=== PATIENT | female | born 1980 | race Caucasian/White ===

== ENCOUNTER → 2016-11-24 | Outpatient (CLI) | payer OTHER ==
[~2016-11-24] MED LIST: ASPI-860 PO; DILT120C47 PO; FERR325T36 PO; FLUT9.9S NS; NAPR250T34 PO; OXYC1TAB87 PO; PREN-148 PO
--- NOTE | 2016-11-24 10:47 | Diagnostic Imaging Report ---
US OB PREG, LATE (14-40 WKS) Technique: Multi-projectional grayscale and color Doppler imaging of the gravid uterus was performed. Indication: Assess size and dates. Comparison: Ultrasound of 09/20/2016. Findings: There is a single live intrauterine with a heart rate of 146 beats per minute. The fetus is cephalic in presentation. The placenta is posteriorly located. The amount of amniotic fluid appears visually appropriate. The cervix is closed. Estimated gestational age by ultrasound was performed by evaluating the biparietal diameter, head circumference, abdominal circumference and femoral length. Based on these measurements, the average gestational age by ultrasound is 30 weeks and 0 days. A limited anatomy survey was performed. This again demonstrates mild symmetric prominence of the renal pelves, which is unchanged. Remainder of the anatomy survey is limited due to gestational age and position. Please see prior anatomy survey performed 09/20/2016 for better evaluation of the anatomy. Impression: 1. Single live with heart rate of 146 beats per minute. 2. Estimated gestational age by ultrasound is 30 weeks and 0 days. This is concordant with the gestational age by LMP, which is 29 weeks and 4 days. Dictated by: Dictated on workstation # [id number]
== END ==
LOC: RAD 08:22
PROVIDERS: ATTEND Family Medicine
DX: O26.843 Uterine size-date discrepancy, third trimester (principal); Z3A.30 30 weeks gestation of pregnancy
CPT/HCPCS: 76805

== ENCOUNTER 2016-12-25 06:44 | Outpatient (CLI) | payer OTHER ==
[~2016-12-25] VITALS: Ht 162.6 cm; Wt 109.0 kg
[2016-12-25 07:05] VITALS: BP 158/87
[2016-12-25 07:30] VITALS: BP 144/84
[2016-12-25 07:40] VITALS: BP 136/79
[2016-12-25 08:00] VITALS: BP 129/86
[2016-12-25 08:10] VITALS: BP 118/75
[2016-12-25 08:20] LABS: BILIRUBIN,URINE Negative (Negative); CLARITY,URINE Clear; COLOR,URINE Yellow; GLUCOSE, URINE (UA) Negative (Negative); LEUKOCYTE ESTERASE, URINE Negative (Negative); UROBILINOGEN,URINE 0.2 mg/dL (0.2-1.0)
[2016-12-25 08:21] LABS: URINE CENTRIFUGED VOLUME 12 mL
[2016-12-25 08:29] LABS: RBC,URINE 0-2 /HPF
[2016-12-25 08:40] VITALS: BP 122/82
--- NOTE | 2016-12-25 10:29 | NUR ---
0700 pt arrived to room 226 via wheelchair accompanied by ER nurse, Haily. pt complains of elevated BP with pre eclampsia hx in last ,back, stomach and vaginal pain that started at 0200 today. She was at work this morning and had a co-worker take her BP with the following readings: 124/115, 104/83, 108/96. placed pt on monitor and assessed pt. see documentation. 0900 pt discharged in good condition. Discharge teaching/instructions reviewed with pt, who denies questions. She left the OB unit ambulatory.
== END 2016-12-25 09:00 | disposition home or self-care (01) ==
LOC: EDUNIT# 06:44 → ED 06:46 → EDSTATUS 06:57 → OBGOP 06:58 → OB 06:59 → OBGOP 09:00
PROVIDERS: ATTEND Family Medicine
DX: O26.893 Other specified pregnancy related conditions, third trimester (principal); M54.9 Dorsalgia, unspecified; R10.2 Pelvic and perineal pain; Z3A.34 34 weeks gestation of pregnancy
CPT/HCPCS: 81003; 81015; 99202

== ENCOUNTER → 2017-01-16 | Outpatient (CLI) | payer OTHER | LOC: RAD 12:57 | PROVIDERS: ATTEND Family Medicine | DX: N13.39 Other hydronephrosis (principal) | CPT/HCPCS: 76815 ==

== ENCOUNTER 2017-01-30 16:02 | Inpatient (IN) | payer OTHER ==
[~2017-01-30] VITALS: Ht 162.6 cm; Wt 113.6 kg
[2017-01-30] VITALS (14 sets, daily range): BP systolic 102–139; BP diastolic 55–93
[~2017-01-30 16:02] MED LIST changes: -NAPR250T34 PO; -OXYC1TAB87 PO
--- OUTSIDE RECORDS SUMMARY | 2017-01-30 16:06 | XMS REPORT | Continuity of Care Document ---
Author Author [facility] Address Unknown Phone Unavailable Care Team Providers Care Press Brake Operator Name Role Phone CHERYL MITCHELL MD PCP [phone] Insurance Providers Payer Name Policy Number Subscriber Name Relationship [employer] [id number] Jennifer Moya 18 Self / Same As Patient Problems Active Problems Medical Problem Onset Date Status 34 weeks gestation of Unknown Acute Back pain Unknown Acute Vaginal pain Unknown Acute Medications Current Home Medications Medication Dose Units Route Directions Days/Qty Instructions Start Date Fluticasone Propionate 9.9 Ml 9.9 Ml Nasal As Needed for Allergies 12/25/16 Vit #76/Iron,Carb/Fa 1 Each 1 Each ORAL Daily 12/25/16 Ferrous Sulfate 325 Mg 325 Mg ORAL Daily 12/25/16 Aspirin 81 Mg 81 Mg ORAL Daily 12/25/16 Diltiazem Hcl 120 Mg 120 Mg ORAL Daily 12/25/16 Social History Query Response Start Date Stop Date Smoking Status Never smoker Hospital Discharge Instructions No hospital discharge instructions. Plan of Care Discharge Date 12/25/16 9:00am Prescriptions See Medication Section Functional Status No functional status results. Allergies, Adverse Reactions, Alerts No allergy information available. Immunizations No immunization records. Vital Signs Acute Vital Signs Vital Response Date/Time Temperature (Fahrenheit) 98.2 12/25/2016 8:00am Pulse 82 bpm 12/25/2016 8:40am Respirations 18 12/25/2016 8:40am Height 5 ft 4 in Weight 240 lb Body Mass Index 41.0 kg/m^2 Results Laboratory Results Test Name Result Units Flags Reference Collection Date/Time Result Date/ Time Comments Volume Urine Centrifuged 12 mL 12/25/2016 8:00am 12/25/2016 8:29am Urine Collection Type CLEAN CATCH 12/25/2016 8:00am 12/25/2016 8: 29am Urine Color Yellow 12/25/2016 8:00am 12/25/2016 8:20am Urine Clarity Clear 12/25/2016 8:00am 12/25/2016 8:20am Urine pH 7.0 5.0 - 8.0 12/25/2016 8:00am 12/25/2016 8:20am Urine Specific [place] 1.010 1.005-1.030 12/25/2016 8:00am 2016 8:20am Urine Protein Negative 12/25/2016 8:00am 12/25/2016 8:20am Urine Glucose (UA) Negative Negative 12/25/2016 8:00am 12/25/2016 8: 20am Urine Blood Trace-intact H Negative 12/25/2016 8:00am 12/25/2016 8: 20am Urine Ketones Negative Negative 12/25/2016 8:00am 12/25/2016 8:20am Urine Nitrite Negative Negative 12/25/2016 8:00am 12/25/2016 8:20am Urine Bilirubin Negative Negative 12/25/2016 8:00am 12/25/2016 8: 20am Urine Urobilinogen 0.2 mg/dL 0.2-1.0 12/25/2016 8:00am 12/25/2016 8: 20am Urine Leukocyte Esterase Negative Negative 12/25/2016 8:00am 2016 8:20am Urine Microscopic RBC 0-2 /HPF 12/25/2016 8:00am 12/25/2016 8:29am Urine Microscopic WBC None Seen /HPF 12/25/2016 8:00am 12/25/2016 8: 29am Urine Bacteria None Seen /HPF Negative 12/25/2016 8:00am 12/25/2016 8: 29am Urine Squamous Epithelial Cells 5-10 /LPF 12/25/2016 8:00am 2016 8:29am Procedures No known history of procedures. Encounters Encounter Location Arrival/Admit Date Discharge/Depart Date Attending Provider Departed Clinic [facility] 12/25/16 6:58am 12/25/16 9:00am KHADIJAH ARECHIGA MD Recent Diagnosis 34 weeks gestation of Back pain Vaginal pain
[2017-01-30] MEDS ORDERED: MISOPROSTOL 25 MCG (CYTOTEC) TABLET PV SCH (16:45)
[2017-01-30] MEDS ORDERED: CALCIUM CARBONATE CHEWABLE 300 MG (TUMS) TABLET PO PRN (16:45)
[2017-01-30] MEDS ORDERED: NS FLUSH 10 ML PRN IV (17:05)
[2017-01-30] MEDS ORDERED: NS FLUSH 3 ML PRN IV (17:05)
[2017-01-30 17:19] LABS: MEAN CORPUSCULAR HEMOGLOBIN 29.5 PG (26.0-34.0); MEAN CORPUSCULAR HGB CONC 33.5 g/dL (31.0-37.0); MEAN PLATELET VOLUME 10.5 FL (6.0-9.5); WHITE BLOOD COUNT 10.44 10^3uL (4.0-11.0)
[2017-01-30 17:32] LABS: ALBUMIN 3.3 g/dL (3.4-5.0); ANION GAP 12.4 MEQ/L (3-15); CALCULATED IONIZED CALCIUM 4.1 mg/dL (3.8-4.6); TOTAL PROTEIN 6.6 g/dL (6.4-8.5)
--- NOTE | 2017-01-30 17:48 | History and Physical (E) ---
History & Physical (OB) Subjective: CC: Term IUP with increasing blood pressure HPI: 36 y/o female at 39 1/7 weeks EGA who presented to the office for routine OB visit today with BP 160/90 that improved to 134/90 with rest. Patient with chronic hypertension and a history of preeclampsia with prior . On questioning she reports 3 days of headaches, no scotomata, epigastric abdominal discomfort, increasing swelling in hands. Decision for induction made. Patient has requested BTL for contraception. PNC: Advanced maternal age (no aneuploidy screening elected), anemia (taking supplemental iron). Fetus noted to have prominent renal pelves on ultrasound. OB Hx: 4 vaginal deliveries. Prior pregnancies with gestational diabetes and preeclampsia PMHx: Asthma, Chronic hypertension. 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) PSHx: Left shoulder surgery Allergies: Coded Allergies: No Known Drug Allergies (Unverified , 01/30/17) Home Medications: Reported Medications Diltiazem HCl (Dilt-XR)120 Mg Cap.er.upz036 Mg PO DAILY 12/25/16 Aspirin 81 Mg Tablet.dr81 Mg PO DAILY 12/25/16 Ferrous Sulfate (Iron)325 Mg Krmxqi483 Mg PO DAILY 12/25/16 Vit #76/Iron,Carb/Fa (Pnv 29-1 Tablet)1 Each Tablet1 Each PO DAILY 12/25/16 Fluticasone Propionate (Flonase Allergy Relief)9.9 Ml [place].susp9.9 Ml NS NEEDED Allergies 12/25/16 Objective: Laboratory Results Past 24 Hrs 01/30/17 17:10: Alanine Aminotransferase (ALT/SGPT) [Pending], Albumin [Pending], Albumin/ Globulin Ratio [Pending], Alkaline Phosphatase [Pending], Anion Gap [Pending], Aspartate Amino Transf (AST/SGOT) [Pending], BUN/Creatinine Ratio [Pending], Blood Urea Nitrogen [Pending], Calcium Level [Pending], Calcium/Ionized Calcium Ratio [Pending], Calculated Osmolality [Pending], Carbon Dioxide Level [Pending] , Chloride Level [Pending], Creatinine [Pending], Estimat Glomerular Filtration Rate [Pending], Estimated GFR (Non- [Pending], Glucose Level [ Pending], Hematocrit 39.10, Hemoglobin 13.1, Mean Corpuscular Hemoglobin 29.5, Mean Corpuscular Hemoglobin Concent 33.5, Mean Corpuscular Volume 88, Mean Platelet Volume 10.5, Platelet Count 217, Potassium Level [Pending], Red Blood Count 4.44, Red Cell Distribution Width 13.1, Sodium Level [Pending], Total Bilirubin [Pending], Total Protein [Pending], Uric Acid [Pending], White Blood Count 10.44 BP 137/93 General: Alert and oriented, NAD Chest: CTA Abdomen: Gravid Cardiovasular: RRR, No murmur Extremities: No edema FHT's: 140's. Moderate LTV. +accels. No decels. Cat 1 Cx: 2/75/-3 Vtx (confirmed by US) [place]: Rare ctx's Screenings: Blood type: O Positive, Rubella Immune, RPR non-reactive, HBV , HIV Negative , GBS Negative. Problems/Plans: (1) Term (2) Elevated blood pressure affecting , antepartum Assessment & Plan: Initiate term cytotec induction. No active preeclampsia. No reason to wait for later induction. Patient in agreement. Checking HELLP labs. No proteinuria on urine dip in office this afternoon. (3) History of pre-eclampsia in prior , currently in third trimester Assessment & Plan: See above. (4) Anemia affecting Assessment & Plan: Taking supplemental iron. Continuance after delivery determined by hemoglobin. (5) Chronic hypertension in Assessment & Plan: Monitor blood pressure closely. Notify me if >160/ 90.Currently taking a daily oral CCB. (6) Unwanted fertility Assessment & Plan: Patient has requested PP BTL. Dr Lundberg has been consulted for that. (7) renal anomaly Assessment & Plan: Planning renal ultrasound on after delivery. Prominence of renal pelves bilaterally--mild. Additional Copies to: End of Report . CHERYL MITCHELL MD Jan 30, 2017 17:48
--- NOTE | 2017-01-30 17:53 | Progress Note (E) ---
Progress Note Labs WNL but uric acid 5 (upper end of normal). CHERYL MITCHELL MD Jan 30, 2017 17:53
[2017-01-30] MEDS ORDERED: ACETAMINOPHEN 500 MG TAB (TYLENOL) PO PRN (20:25)
[2017-01-30] MEDS ORDERED: OXYTOCIN INJ 20 UNIT in NS 1000ml 1,000 ML SCH (21:30)
[2017-01-30] MEDS ORDERED: DILTIAZEM 60 MG (CARDIZEM) TAB PO SCH (21:45)
[2017-01-30] MEDS ORDERED: OXYTOCIN INJ 20 UNIT in NS 1000ml 1,000 ML IV SCH (22:03)
[2017-01-30] MEDS ORDERED: ROPIVACAINE 1% 10 MG/ML (NAROPIN) 20 ML AMPUL ONE (22:13)
[2017-01-31] VITALS (27 sets, daily range): BP systolic 111–166; BP diastolic 64–91
[2017-01-31 00:36] LABS: BILIRUBIN,URINE Negative (Negative); CLARITY,URINE Clear; COLOR,URINE Yellow; GLUCOSE, URINE (UA) Negative (Negative); LEUKOCYTE ESTERASE ,URINE Negative (Negative); UROBILINOGEN,URINE 0.2 mg/dL (0.2-1.0)
[2017-01-31 01:08] LABS: RBC,URINE None Seen /HPF; URINE CENTRIFUGED VOLUME 12 mL
[2017-01-31] MEDS ORDERED: DILTIAZEM 60 MG (CARDIZEM) TAB PO SCH (09:00)
--- NOTE | 2017-01-31 09:02 | Progress Note (E) ---
Progress Note S: Feeling contractions occasionally O: Cx 4/75/-3 Vtx. Amniotomy yields clear fluid FHT's 140's moderate LTV, + accels until 08:00. Amniotomy at 8:04, clear fluid. Then occasional variable decels with contractions. Ultrasound at 8:23 shows OA presentation. FHT's thereafter show repeated late decels to 90's with contractions with rapid recovery. Repeat Cx exam shows 4/80/-2, no cord. O2 placed, turned to left side. IV fluid bolus started FHT's with minimal variability, gradually improving, now with early decels at 8:45. Ctx's Q 2-4 min A/P: Minimal progress overnight despite adequate contractions. Now with category 2 strip after amniotomy but no cord prolapse. Will alert team. CHERYL MITCHELL MD Jan 31, 2017 09:01
[2017-01-31] MEDS ORDERED: ROPIVACAINE 1% 10 MG/ML (NAROPIN) 20 ML AMPUL ONE ×2 (09:04→14:52)
[2017-01-31] MEDS: OXYTOCIN INJ 20 UNIT in NS 1000ml 1,000 ML IV PRN ×2 (10:07→13:23)
--- NOTE | 2017-01-31 10:33 | Vaginal Delivery Summary (E) ---
Vaginal Delivery Summary At 16:02 on 01/30/17 this 36 year old G 5 now P4 presented to the Labor and Delivery Unit at 39&2 weeks gestation. The patient presented for care at 5 weeks and ultrasound at 8 confirmed dates. This complications: advanced maternal age, chronic hypertension, abnl renal findings on ultrasound Maternal labs: Blood type: O Positive, Hgb , Rubella Immune, RPR non-reactive, HBV Negative, HIV Negative , GBS Negative. Tdap booster received on 11/15/16. Flu booster received on 08/24/16. She presented for term with increasing blood pressure . At presentation, she was 2cm dilated. On 01/31/17 at 8:30 approx, AROM was performed by me with clear fluid returned. Epidural was placed at 22:28 by asmita toth crna, with good pain relief. Cytotec dose x 1 followed by pitocin augmentation. Progressed only to 4 cm by 8 :00am. AROM performed. decels improved with fluids, oxygen and repositioning and decreasing pitocin. Progressed rapidly to complete dilation and pushed very effectively to deliver a vigorous male from OA position with no nuchal cord. Body delivered without trauma. Suctioned after delivery and stimulated and placed on maternal abdomen. No additional resuscitation was required. Placenta delivered intact with 3 vessel cord. Fundus was firm and hemostatic. First degree posterior laceration required 2 sutures to become hemostatic using 3.0 vicryl. Hemostasis noted. Fundus firm. EBL 250 cc. No complications. Both patient and recovering in stable condition. CHERYL MITCHELL MD Jan 31, 2017 10:33
[2017-01-31] MEDS ORDERED: oxyCODONE/ACETAMINOPHEN 5MG-325 MG (PERCOCET) TABLET PO PRN (10:35)
[2017-01-31] MEDS ORDERED: NAPROXEN 250 MG (NAPROSYN) TABLET PO PRN (10:35)
[2017-01-31] MEDS ORDERED: LANOLIN OINTMENT 28 GM TUBE TOP PRN (10:35)
--- NOTE | 2017-01-31 11:50 | HISTORY AND PHYSICAL ---
HISTORY CHIEF COMPLAINT: Multigravida requesting sterilization with medical indications HISTORY OF PRESENT ILLNESS: The patient is a 36-year-old female who just delivered vaginally under the care of Dr. Og. This is her fourth vaginal delivery. Her health, however, is complicated by chronic hypertension. It is complicated also by gestational diabetes and preeclampsia now with the last 2 pregnancies. Because of her advancing maternal age, her preexisting hypertension and then her preeclampsia, it is felt indicated to proceed with permanent sterilization per patient's health. Her is present during the consultation and both admitted that this was actually somewhat of a surprise to them and was somewhat risky during her advancing age and medical problems. I spoke with both regarding that this is a permanent and irreversible means of sterilization. There is a potential failure rate, which may result in even tubal . Also discussed the risk of mini-laparotomy surgery with the risk of potential bleeding or infection. She wishes to proceed with the procedure. PAST MEDICAL HISTORY: As mentioned the patient has chronic central hypertension, and has had complications of gestational diabetes and preeclampsia. PAST SURGICAL HISTORY: She has had no previous abdominal surgeries. ALLERGIES: She has no drug allergies. PHYSICAL EXAM Examination currently reveals her vitals signs to all be stable with no hypertension, no tachycardia. Heart is regular. Lungs are clear. Heart regular rate and rhythm without murmur. Abdomen reveals the uterine fundus near the umbilicus. She appears to be medically stable. ASSESSMENT: Desire for sterilization with medical indications. PLAN: Plan to proceed with mini-laparotomy tubal under proposed epidural anesthesia if epidural was still functional.
[2017-01-31] MEDS ORDERED: BUPIVACAINE/EPINEPHRINE 0.5%-1:200,000 (MARCAINE) 30 ML VIAL INJ ONE (13:54)
[2017-01-31 14:28] LABS: BASOPHILS % (AUTO) 0 % (0-2); EOSINOPHILS # (AUTO) 0.1 10^3uL; EOSINOPHILS % (AUTO) 1 % (0-4); LYMPHOCYTES # (AUTO) 2.3 X10^3; MEAN CORPUSCULAR HEMOGLOBIN 29.6 PG (26.0-34.0); MEAN CORPUSCULAR VOLUME 87 FL (80-100); MEAN PLATELET VOLUME 10.7 FL (6.0-9.5); MONOCYTES # (AUTO) 0.9 X10^3; MONOCYTES % (AUTO) 7 % (3-11); NEUTROPHILS # (AUTO) 10.1 X10^3; NEUTROPHILS % (AUTO) 76 % (51-67); PLATELET COUNT 180 10^3uL (150-450); WHITE BLOOD COUNT 13.42 10^3uL (4.0-11.0)
[2017-01-31 14:35] LABS: ANION GAP 10.5 MEQ/L (3-15)
[2017-01-31] MEDS ORDERED: morphine PF 0.5 MG/ML (DURAMORPH) 10 ML VIAL IV ONE (14:52)
--- NOTE | 2017-01-31 14:55 | NUR ---
Pt take to OB OR via chart for tubal ligation. Infant remains in post room with father.
[2017-01-31] MEDS ORDERED: LIDOCAINE 2% (XYLOCAINE) 20 ML VIAL INJ ONE (15:26)
[2017-01-31] MEDS ORDERED: MIDAZOLAM 2 MG/2 ML (VERSED) VIAL ONE (15:26)
[2017-01-31] MEDS ORDERED: EPINEPHRINE INJ ONE (15:26)
[2017-01-31] MEDS ORDERED: LIDOCAINE INJ ONE (15:26)
[2017-01-31] MEDS ORDERED: SUCCINYLCHOLINE 20 MG/ML 10 ML VIAL ONE (15:29)
[2017-01-31] MEDS ORDERED: PROPOFOL 20 ML IV ONE (15:29)
--- NOTE | 2017-01-31 16:30 | NUR ---
Pt back from surgery. Report received from surgical nurse.
--- NOTE | 2017-01-31 17:38 | Progress Note (E) ---
Progress Note Had to use general anesthesia with BTL. Now throat is sore. Will order Chlorseptic. Waiting for sensation to return to legs. Nursing well. CHERYL MITCHELL MD Jan 31, 2017 17:38
[2017-01-31] MEDS ORDERED: PHENOL THROAT SPRAY (CHLORASEPTIC) 177 ML BTL MM ONE (17:40)
[2017-01-31] MEDS: DILTIAZEM CD 120 MG (CARDIZEM CD) CAP PO SCH ×2 (21:00→21:47)
[2017-01-31] MEDS ORDERED: DILTIAZEM CD 120 MG (CARDIZEM CD) CAP PO SCH (21:00)
[2017-01-31] MEDS ORDERED: DOCUSATE SODIUM 100 MG (COLACE) CAP PO SCH (21:00)
--- NOTE | 2017-01-31 21:30 | NUR ---
Patient reports she took her own BP medication. Ordered Cardizem CD not given for this reason.
[2017-02-01 08:35] LABS: MEAN CORPUSCULAR HEMOGLOBIN 29.6 PG (26.0-34.0); MEAN CORPUSCULAR HGB CONC 33.9 g/dL (31.0-37.0); MEAN PLATELET VOLUME 10.6 FL (6.0-9.5); WHITE BLOOD COUNT 11.47 10^3uL (4.0-11.0)
[2017-02-01 08:45] VITALS: BP 152/94
--- NOTE | 2017-02-01 08:55 | Progress Note (E) ---
Progress Note S: Pain controlled. Bleeding improving. Eating/ambulating/nursing well. O: VS BP 152/94 P75 o2 95% T 98.2 R18 Incision dry, no erythema Fundus below umbilicus Ext: No edema/ - Jillian's Lab: Laboratory Results Past 24 Hrs 01/31/17 14:20: Anion Gap 10.5, BUN/Creatinine Ratio 12, Basophils # (Auto) 0.0, Basophils (%) ( Auto) 0, Blood Urea Nitrogen 7, Calcium Level 8.1, Carbon Dioxide Level 19, Chloride Level 112, Creatinine 0.59, Eosinophils # (Auto) 0.1, Eosinophils (%) ( Auto) 1, Estimat Glomerular Filtration Rate 139.5, Estimated GFR (Non- 115.3, Glucose Level 74, Hematocrit 35.30, Hemoglobin 12.0, Lymphocytes # (Auto) 2.3, Lymphocytes (%) (Auto) 17, Mean Corpuscular Hemoglobin 29.6, Mean Corpuscular Hemoglobin Concent 34.0, Mean Corpuscular Volume 87, Mean Platelet Volume 10.7, Monocytes # (Auto) 0.9, Monocytes (%) ( Auto) 7, Neutrophils # (Auto) 10.1, Neutrophils (%) (Auto) 76, Platelet Count 180, Potassium Level 3.7, Red Blood Count 4.05, Red Cell Distribution Width 13.1 , Sodium Level 138, White Blood Count 13.42 02/01/17 08:07: Hematocrit 33.90, Hemoglobin 11.5, Mean Corpuscular Hemoglobin 29.6, Mean Corpuscular Hemoglobin Concent 33.9, Mean Corpuscular Volume 87, Mean Platelet Volume 10.6, Platelet Count 195, Red Blood Count 3.88, Red Cell Distribution Width 13.0, White Blood Count 11.47 A/P 1. PPD #1. Doing well. Wanting to go home. See discharge orders. 2. Chronic hypertension: A bit high. Continue same meds. Will adjust at PP visit if needed 3. Gestational anemia: Continue FeSO4. 4. S/P BTL. Doing well. CHERYL MITCHELL MD Feb 01, 2017 08:55
[2017-02-01] MEDS ORDERED: OXYC1TAB87 PO (08:57)
[2017-02-01] MEDS ORDERED: NAPR250T34 PO (08:57)
--- NOTE | 2017-02-01 12:15 | OPERATIVE REPORT ---
DATE OF OPERATION: 01/31/2017 PRE-OPERATIVE DIAGNOSIS: Desire for permanent sterilization. POST-OPERATIVE DIAGNOSIS: Desire for permanent sterilization. OPERATIVE PROCEDURE: Minilaparotomy bilateral partial salpingectomy (tubal). SURGEON: Bharat Lundberg M.D. ANESTHESIA: General. DESCRIPTION OF PROCEDURE: Lian is a 36-year-old multigravida just delivered her fourth baby earlier in the day. She had made a decision for permanent irreversible sterilization. She had medical complications that supported this. After informed consent, she was taken to the OB OR NPO status. She was placed in the usual manner where a periumbilical scrub, preps, and drapes were applied. A small curve linear incision was created after general anesthesia was induced in that her epidural was no longer functional. The incision was approximately 1-inch in length. This was carried down to the anterior midline where the fascia was then tented and entered vertically. When the peritoneum was inspected it was then entered bluntly, grasped, and opened with the hemostats. At this point, the fascial incision was then opened up large enough to accept [employer] retractors. With the deep end of the [employer] retractors placed they were manipulated to first identify the left fallopian tube. It was grasped with a Angela clamp and then delivered through the wound. With a second clamp, the fallopian tube was then teased out of the wound until the fimbriae was identified. At this point, a midportion of the tube was then grasped with a [place] clamp to create a knuckled segment which was then ligated with plain 0-Gut. The second independent ligature of plain 0-Gut was placed also. At this point, the ligature segment was excised and sent for pathologic identification. The ligated ends were also cauterized. This was allowed to drop back into the abdominal wound where upon the same procedure was used on the right fallopian tube with the same results. At this point, a small peritoneal defect was closed with a figure of eight 2-0 Vicryl. The fascial defects were closed at the midline with 3 ligatures of running 0-Vicryl and the skin edges were closed with subcuticular 4-0 Vicryl. The skin edges were also supported with Mastisol and Steri-Strips. There are no complications during the case. The patient was taken back to her postop room in good condition.
--- NOTE | 2017-02-01 13:30 | NUR ---
Education and discharge instruction review with patient. Patient denies any questions or concerns. Discharge papers signed.
--- NOTE | 2017-02-01 14:30 | NUR ---
Infant bracelet verified with mother's. Infant secured properly into carrier. Personal belonging gathered. Patient discharged ambulatory status accompanied by this nurse and FOB, carrying carrier. Patient leaves POV.
--- NOTE | 2017-02-01 15:44 | DISCHARGE SUMMARY ---
ADMISSION DATE: 01/30/2017 DISCHARGE DATE: 02/01/2017 DISCHARGE DIAGNOSIS: 1. 39 and 2 day intrauterine . 2. Chronic hypertension. 3. Acute preeclampsia. 4. Delivery of male . 5. Desire for permanent irreversible sterilization. PROCEDURES: 1. Vaginal delivery, 01/31/2017, Dr. Shanta Og. 2. Minilaparotomy bilateral partial salpingectomy, 01/31/2017, Dr. Bharat Lundberg. HISTORY: Lian is a 36-year-old G4,P3 who was admitted by Dr. Og due to elevated blood pressures at office visit. This patient had two previous deliveries with preeclampsia and also had a history of chronic hypertension. She was given 1 dose of Cytotec then given Pitocin. On 01/31/2017, late morning hours, she then had a vaginal delivery attended by Dr. Og, delivered a viable male infant. The patient made decision for permanent irreversible sterilization and I was contacted for tubal consultation. I spoke with Lian and her , both were in agreement to proceed with this due to her medical complications and the fact that she is 36-years of age with now 4 children. She was taken to the OR where using a small infraumbilical skin incision a minilaparotomy was performed and bilateral partial salpingectomy was accomplished. Postoperatively she did very well. I examined her the morning of 02/01/2017. She is in good condition. Dr. Og dismissed her. In regards to accept her care I discussed her postop care, her tubal incision with her, and she was dismissed to home. DISPOSITION: Patient dismissed to home. I will see her back on an as needed basis. Dr. Og will see her at her 6-week check. Other discharge orders were entered by Dr. Og.
== END 2017-02-01 14:30 | disposition home or self-care (01) | DRG 767 ==
LOC: OB 16:02
PROVIDERS: ADMIT Family Medicine; ATTEND Family Medicine
PROC: 3E0P7GC Introduction of Other Therapeutic Substance into Female Reproductive, Via Natural or Artificial Opening (ICD-10-PCS; principal; 2017-01-30)
PROC: 10E0XZZ Delivery of Products of Conception, External Approach (ICD-10-PCS; 2017-01-30)
PROC: 0HQ9XZZ Repair Perineum Skin, External Approach (ICD-10-PCS; 2017-01-30)
PROC: 0UB70ZZ Excision of Bilateral Fallopian Tubes, Open Approach (ICD-10-PCS; 2017-01-31)
DX: O10.92 Unspecified pre-existing hypertension complicating childbirth (principal); O70.0 First degree perineal laceration during delivery; Z30.2 Encounter for sterilization; O99.02 Anemia complicating childbirth; D64.9 Anemia, unspecified; O35.8XX0 Maternal care for other (suspected) fetal abnormality and damage, not applicable or unspecified; O99.513 Diseases of the respiratory system complicating pregnancy, third trimester; J45.909 Unspecified asthma, uncomplicated; Z3A.39 39 weeks gestation of pregnancy; Z37.0 Single live birth
CPT/HCPCS: 36415; 80048; 80053; 81003; 81015; 84550; 85025; 85027; 86850; 86900; 86901